=== PATIENT | female | born 2000 | race Caucasian/White ===

== ENCOUNTER → 2018-11-21 | Outpatient (CLI) | payer OTHER ==
--- NOTE | 2018-11-21 10:39 | Diagnostic Imaging Report ---
PROCEDURE: US Gallbladder. TECHNIQUE: Multiple real-time grayscale images were obtained over the right upper quadrant in various projections. INDICATION: Right upper quadrant pain. FINDINGS: The liver is upper limits of normal in size approximately 17 cm. No discrete liver mass is identified. The portal vein is patent and shows normal direction of flow. The gallbladder is without stones or sludge. No wall thickening is identified. There is no pericholecystic fluid or biliary duct dilatation. Pancreas and right kidney are unremarkable. There is no ascites. IMPRESSION: Unremarkable gallbladder ultrasound. Dictated by: Dictated on workstation # [id number]
== END ==
LOC: RAD 09:38
PROVIDERS: ATTEND Physician Assistant
DX: R10.11 Right upper quadrant pain (principal)
CPT/HCPCS: 76705

== ENCOUNTER 2019-03-13 16:17 | Emergency (ER) | payer OTHER ==
[~2019-03-13] VITALS: Ht 167.6 cm; Wt 113.4 kg
[2019-03-13 17:14] LABS: BILIRUBIN,URINE NEGATIVE (NEGATIVE); CLARITY,URINE SLIGHTLY CLOUDY; COLOR,URINE YELLOW; GLUCOSE, URINE (UA) NEGATIVE (NEGATIVE); KETONES,URINE NEGATIVE (NEGATIVE); LEUKOCYTE ESTERASE ,URINE 1+ (NEGATIVE); NITRITE,URINE NEGATIVE (NEGATIVE); PH,URINE 6 (5-9); PROTEIN,URINE 1+ (NEGATIVE); UROBILINOGEN,URINE NORMAL (NORMAL)
--- NOTE | 2019-03-13 17:18 | ED Abdominal Pain ---
General Chief Complaint: Abdominal/GI Problems Stated Complaint: ABD PAIN Source of Information: Patient Exam Limitations: No Limitations History of Present Illness Date Seen by Provider: March 13, 2019 Time Seen by Provider: 17:01 Initial Comments Patient presents to ER by private conveyance with chief complaint of the last several months she's been having some crampy low abdominal pain down in her pelvis left worse than right. She says it just progressively gotten worse until tonight scan so bad she could not walk very well and had to be sent home from work. No fevers or chills nausea or vomiting. She's having no dysuria. Her bowels are consistently regular. She does have a history of IBS but she's not noticing any black tarry stools or blood in her stool. She had STD testing in May 2018 which was negative. She says she's been same partner for the last 4 years. She does have some vaginal discharge. She has a Mirena and she is concerned that maybe it's become dislodged and that's why she's having the pain. Allergies and Home Medications Allergies Coded Allergies: No Known Drug Allergies (Unverified , 03/13/19) Patient Home Medication List Home Medication List Reviewed: Yes Review of Systems Review of Systems Constitutional: No chills, No fever, No malaise EENTM: No Blurred Vision, No Double Vision Respiratory: Denies Cough, Denies Shortness of Air Gastrointestinal: See HPI; Denies Abdomen Distended; Abdominal Pain; Denies Constipated, Denies Diarrhea, Denies Nausea, Denies Poor Fluid Intake, Denies Vomiting Genitourinary: Denies Burning; Discharge; Denies Drainage, Denies Frequency; Pain Past [id number] Hx Patient Social History Alcohol Use: Denies Use Recreational Drug Use: No Smoking Status: Never a Smoker Recent Foreign Travel: No Contact w/Someone Who Travel: No Past Medical History Surgeries: No Respiratory: No Cardiac: No Genitourinary: No Cancer: No Integumentary: No Physical Exam Vital Signs Vital Signs - First Documented 03/13/19 16:52 Temp 97.8 Pulse 100 Resp 18 B/P (MAP) 143/76 (98) Pulse Ox 99 O2 Delivery Room Air Capillary Refill : Height/Weight/BMI Height: '" Weight: lbs. oz. kg; BMI Method: General Appearance: WD/WN, mild distress HEENT: PERRL/EOMI, normal ENT inspection, pharynx normal Neck: non-tender, full range of motion, supple, normal inspection Respiratory: lungs clear, normal breath sounds, no respiratory distress, no accessory muscle use Cardiovascular: normal peripheral pulses, regular rate, rhythm Gastrointestinal: normal bowel sounds, soft, tenderness (left lower quadrant and suprapubic region), other (negative for mesenteric signs, psoas signs) Genital/Rectal: normal genital exam Extremities: normal inspection, normal capillary refill Neurologic/Psychiatric: alert, oriented x 3 Skin: normal color, warm/dry Progress/Results/Core Measures Results/Orders Lab Results Laboratory Tests Test 03/13/19 17:05 03/13/19 17:17 03/13/19 17:22 Range/Units Urine Color YELLOW Urine Clarity SLIGHTLY CLOUDY Urine pH 6 5-9 Urine Specific Bradford 1.020 1.016-1.022 Urine Protein 1+ H NEGATIVE Urine Glucose (UA) NEGATIVE NEGATIVE Urine Ketones NEGATIVE NEGATIVE Urine Nitrite NEGATIVE NEGATIVE Urine Bilirubin NEGATIVE NEGATIVE Urine Urobilinogen NORMAL NORMAL MG/DL Urine Leukocyte Esterase 1+ H NEGATIVE Urine RBC (Auto) NEGATIVE NEGATIVE Urine RBC NONE /HPF Urine WBC 2-5 /HPF Urine Squamous Epithelial Cells 2-5 /HPF Urine Crystals NONE /LPF Urine Bacteria MODERATE H /HPF Urine Casts NONE /LPF Urine Mucus NEGATIVE /LPF Urine Culture Indicated NO White Blood Count 7.1 4.3-11.0 10^3/uL Red Blood Count 3.95 L 4.35-5.85 10^6/uL Hemoglobin 12.2 11.5-16.0 G/DL Hematocrit 36 35-52 % Mean Corpuscular Volume 90 80-99 FL Mean Corpuscular Hemoglobin 31 25-34 PG Mean Corpuscular Hemoglobin Concent 34 32-36 G/DL Red Cell Distribution Width 12.8 10.0-14.5 % Platelet Count 254 130-400 10^3/uL Mean Platelet Volume 10.2 7.4-10.4 FL Neutrophils (%) (Auto) 59 42-75 % Lymphocytes (%) (Auto) 29 12-44 % Monocytes (%) (Auto) 12 0-12 % Eosinophils (%) (Auto) 0 0-10 % Basophils (%) (Auto) 0 0-10 % Neutrophils # (Auto) 4.2 1.8-7.8 X 10^3 Lymphocytes # (Auto) 2.0 1.0-4.0 X 10^3 Monocytes # (Auto) 0.9 0.0-1.0 X 10^3 Eosinophils # (Auto) 0.0 0.0-0.3 10^3/uL Basophils # (Auto) 0.0 0.0-0.1 10^3/uL Sodium Level 140 135-145 MMOL/L Potassium Level 3.6 3.6-5.0 MMOL/L Chloride Level 106 98-107 MMOL/L Carbon Dioxide Level 23 21-32 MMOL/L Anion Gap 11 5-14 MMOL/L Blood Urea Nitrogen 9 7-18 MG/DL Creatinine 0.75 0.60-1.30 MG/DL Estimat Glomerular Filtration Rate > 60 BUN/Creatinine Ratio 12 Glucose Level 71 70-105 MG/DL Calcium Level 10.0 8.5-10.1 MG/DL Corrected Calcium 9.8 8.5-10.1 MG/DL Total Bilirubin 0.6 0.1-1.0 MG/DL Aspartate Amino Transf (AST/SGOT) 15 5-34 U/L Alanine Aminotransferase (ALT/SGPT) 21 0-55 U/L Alkaline Phosphatase 59 40-136 U/L C-Reactive Protein High Sensitivity 0.27 0.00-0.50 MG/DL Total Protein 7.5 6.4-8.2 GM/DL Albumin 4.3 3.2-4.5 GM/DL Micro Results Microbiology 03/13/19 Wet Prep - Final, Complete My Orders Orders - OMER GARDNER Cbc With Automated Diff (03/13/19 17:11) Hs C Reactive Protein (03/13/19 17:11) Comprehensive Metabolic Panel (03/13/19 17:11) Wet Prep (03/13/19 17:11) Neisseria Gonorrhea Swab (03/13/19 17:11) Chlamydia Trachomatis Swab (03/13/19 17:11) Ed Iv/Invasive Line Start (03/13/19 17:20) Lactated Ringers (Lr 1000 Ml Iv Solution (03/13/19 17:20) Ketorolac Injection (Toradol Injection) (03/13/19 17:30) Metronidazole Tablet (Flagyl Tablet) (03/13/19 18:00) Medications Given in ED Current Medications Medications Dose Ordered Sig/Giorgio Route Start Time Stop Time Status Last Admin Dose Admin Ketorolac Tromethamine 30 mg ONCE ONCE IVP 03/13/19 17:30 03/13/19 17:31 DC 03/13/19 17:31 30 MG Lactated Ringer's 1,000 ml @ 0 mls/hr Q0M ONCE IV 03/13/19 17:20 03/13/19 17:22 DC 03/13/19 17:31 0 MLS/HR Vital Signs/I&O 03/13/19 16:52 Temp 97.8 Pulse 100 Resp 18 B/P (MAP) 143/76 (98) Pulse Ox 99 O2 Delivery Room Air Progress Progress Note : Time: 17:19 Progress Note Gynecologic pain secondary to a cyst or possible misplacement of the Mirena versus PID versus UTI. Basic labs urinalysis give her some Toradol for her pain a liter of saline and get a wet prep and GC chlamydia. Departure Impression Primary Impression: Bacterial vaginitis Disposition: HOME, SELF-CARE Condition: Stable Departure-Patient Inst. Decision time for Depature: 18:03 Referrals: [facility] (PCP/Family) Primary Care Physician Patient Instructions: Bacterial Vaginosis (DC) Add. 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 Follow-up with primary care doctor if your symptoms have not improved by the end of the week. All discharge instructions reviewed with patient and/or family. Voiced understanding. Scripts Metronidazole (Flagyl) 500 Mg Tablet 500 MG PO BID for 7 Days, #13 TAB 0 Refills Prov: OMER GARDNER 03/13/19 Work/School Note: Work Release Form Date Seen in the Emergency Department: March 13, 2019 Return to Work: March 14, 2019 Restrictions: No Restrictions OMER GARDNER March 13, 2019 17:18
[2019-03-13] MEDS ORDERED: LACTATED RINGERS 1,000 ML IV ONE (17:20)
[2019-03-13 17:24] LABS: BACTERIA,URINE MODERATE /HPF
[2019-03-13 17:30] LABS: BASOPHILS % (AUTO) 0 % (0-10); EOSINOPHILS % (AUTO) 0 % (0-10); HEMATOCRIT 36 % (35-52); HEMOGLOBIN 12.2 G/DL (11.5-16.0); LYMPHOCYTES % (AUTO) 29 % (12-44); MEAN CORPUSCULAR HEMOGLOBIN 31 PG (25-34); MEAN CORPUSCULAR HGB CONC 34 G/DL (32-36); MEAN CORPUSCULAR VOLUME 90 FL (80-99); MEAN PLATELET VOLUME 10.2 FL (7.4-10.4); MONOCYTES # (AUTO) 0.9 X 10^3 (0.0-1.0); MONOCYTES % (AUTO) 12 % (0-12); NEUTROPHILS # (AUTO) 4.2 X 10^3 (1.8-7.8); NEUTROPHILS % (AUTO) 59 % (42-75); PLATELET COUNT 254 10^3/uL (130-400); RED CELL DISTRIBUTION WIDTH 12.8 % (10.0-14.5); WHITE BLOOD COUNT 7.1 10^3/uL (4.3-11.0)
[2019-03-13] MEDS ORDERED: KETOROLAC 30 MG/ML VIAL IVP ONE (17:30)
[2019-03-13 17:57] LABS: ALANINE AMINOTRANSFERASE 21 U/L (0-55); ALBUMIN 4.3 GM/DL (3.2-4.5); ALKALINE PHOSPHATASE 59 U/L (40-136); BILIRUBIN,TOTAL 0.6 MG/DL (0.1-1.0); BUN/CREATININE RATIO 12; CARBON DIOXIDE 23 MMOL/L (21-32); CHLORIDE 106 MMOL/L (98-107); CREATININE SERUM 0.75 MG/DL (0.60-1.30); GFR ESTIMATED > 60; GLUCOSE 71 MG/DL (70-105); POTASSIUM 3.6 MMOL/L (3.6-5.0); SODIUM 140 MMOL/L (135-145); TOTAL PROTEIN 7.5 GM/DL (6.4-8.2)
[2019-03-13] MEDS ORDERED: metroNIDAZOLE 500 MG (FLAGYL) TAB PO ONE (18:00)
[2019-03-13] MEDS ORDERED: METR500T PO (18:08)
[2019-03-13 18:26] VITALS: BP 126/95
== END 2019-03-13 18:31 | disposition home or self-care (01) ==
LOC: EDUNIT# 16:17 → ER 16:18
DX: N76.0 Acute vaginitis (principal); B96.89 Other specified bacterial agents as the cause of diseases classified elsewhere; K58.9 Irritable bowel syndrome, unspecified
CPT/HCPCS: 36415; 80053; 81000; 84703; 85025; 86141; 87210; 87491; 87591